=== PATIENT | male | born 1995 | race Caucasian/White ===

== ENCOUNTER 2020-03-04 13:31 | Emergency (ER) | payer SELFPAY ==
[2020-03-04] MEDS ORDERED: IBUP-1780 PO (13:49)
[2020-03-04] MEDS ORDERED: PENI500T PO (13:49)
--- NOTE | 2020-03-04 13:50 | ED General ---
General Stated Complaint: DENTAL PAIN Source of Information: Patient History of Present Illness Date Seen by Provider: Mar 04, 2020 Time Seen by Provider: 13:45 Initial Comments 24 y/o male presents w pain of a tooth for several days. Has not attempted to see a dentist. No jaw swelling, no difficulty swallowing Allergies and Home Medications Home Medications Ibuprofen 800 Mg Tablet, 800 MG PO Q8H PRN for PAIN Prescribed by: PRIYANKA ROBLERO on 03/04/20 1349 Penicillin V Potassium 500 Mg Tablet, 500 MG PO TID Prescribed by: PRIYANKA ROBLERO on 03/04/20 1349 Patient Home Medication List Home Medication List Reviewed: Yes Review of Systems Review of Systems Constitutional: No chills, No fever, No malaise EENTM: see HPI, dental problems; No ear pain, No hoarseness, No mouth pain, No mouth swelling, No throat pain, No throat swelling Respiratory: no symptoms reported Cardiovascular: no symptoms reported Skin: no symptoms reported Past Vuuqnjg-Gptmty-Ysgmfr Hx Past Med/Social Hx: Reviewed Nursing Past Med/Soc Hx Patient Social History Recent Foreign Travel: No Contact w/Someone Who Travel: No Physical Exam Vital Signs Capillary Refill : Height, Weight, BMI Height: '" Weight: lbs. oz. kg; BMI Method: General Appearance: No Apparent Distress, WD/WN HEENT: PERRL/EOMI, Normal ENT Inspection, Other (small central cavity R upper/ post molar. no abscess or gum swelling. no jaw pain or edema. NO lymphad. or neck mass) Neck: Normal Inspection, Non Tender, Supple; No Lymphadenopathy (L), No Lymphadenopathy (R) Skin: Normal Color, Warm/Dry Progress/Results/Core Measures Suspected Sepsis SIRS Temperature: Pulse: Respiratory Rate: Blood Pressure / Mean: Results/Orders Vital Signs/I&O Capillary Refill : Departure Impression Primary Impression: Dental caries Disposition: HOME, SELF-CARE Condition: Stable Departure-Patient Inst. Decision time for Depature: 13:46 Referrals: NO,LOCAL PHYSICIAN (PCP) Primary Care Physician [facility] Patient Instructions: Tooth Decay, Adult (DC) Add. Discharge Instructions: See a Dentist for further evaluation and treatment of your cavity. Scripts Penicillin V Potassium (Penicillin V Potassium) 500 Mg Tablet 500 MG PO TID for 7 Days, #15 TAB Prov: PRIYANKA ROBLERO DO 03/04/20 Ibuprofen (Ibuprofen) 800 Mg Tablet 800 MG PO Q8H PRN for PAIN, #30 TAB 0 Refills Prov: PRIYANKA ROBLERO DO 03/04/20 PRIYANKA ROBLERO DO Mar 04, 2020 13:50
[2020-03-04 14:12] VITALS: BP 171/107
== END 2020-03-04 13:52 | disposition home or self-care (01) ==
LOC: ER FS 13:35
DX: K02.9 Dental caries, unspecified (principal); Z88.0 Allergy status to penicillin; Z88.6 Allergy status to analgesic agent
CPT/HCPCS: 99282